=== PATIENT | female | born 1980 | race Hispanic/Latino ===

== ENCOUNTER 2018-03-24 07:33 | Day surgery (SDC) | payer BC ==
[2018-03-24 07:43] VITALS: BMI 24.1
[2018-03-24 08:02] LABS: BASO % 0.6 % (0.0-2.0); EOS # 0.2 K/uL (0.0-0.7); EOS % 3.5 % (0.0-4.0); LYMPH # 1.7 K/uL (1.0-4.3); LYMPH % 31.7 % (20.0-40.0); MEAN CELL VOLUME 89.7 fL (81.0-99.0); MEAN CORPUSCULAR HEMOGLOBIN 31.7 pg (27.0-31.0); MEAN CORPUSCULAR HGB CONC 35.3 g/dL (33.0-37.0); MONO # 0.3 K/uL (0.0-0.8); MONO % 6.2 % (0.0-10.0); RBC 3.79 Mil/uL (3.80-5.20); RED CELL DISTRIBUTION WIDTH 13.1 % (11.5-14.5); WHITE BLOOD COUNT 5.2 K/uL (4.8-10.8)
[2018-03-24 08:13] LABS: BLOOD UREA NITROGEN 15 mg/dL (7-17); CALCIUM 8.8 mg/dl (8.6-10.4); GFR AFRICAN-AMERICAN > 60; GFR NON-AFRICAN AMERICAN > 60
[2018-03-24 08:27] VITALS: RESP 18
[2018-03-24] MEDS ORDERED: Propofol 10 mg/ml Inj (20 ML) ONE (09:21)
--- NOTE | 2018-03-24 09:54 | PCM.SURG1 ---
Surgeon's Initial Post Op Note - Surgeon's Notes Surgeon: Lois Plascencia MD Development Architect: None Type of Anesthesia: General LMA Pre-Operative Diagnosis: Abnormal uterine bleeding Operative Findings: 10 week size uterus, biilatearl ostia visulzed, sumbucosla myoma along left lateral edge resected with myosure Post-Operative Diagnosis: same as above Operation Performed: Hysteroscopic myomectomy, Dilationa dn currettage Specimen/Specimens Removed: endocervical currettingd, endometrial currettings, submucsal myoma Estimated Blood Loss: EBL {In ML}: 5 Blood Products Given: N/A Drains Used: No Drains Post-Op Condition: Good Date of Surgery/Procedure: 03/24/18 Time of Surgery/Procedure: 09:35
[2018-03-24] MEDS ORDERED: HYDROmorphone 0.5 mg/0.5 ml ISec IVP PRN (10:02)
[2018-03-24 11:44] VITALS: BP 90/70; PULSE 80; TEMP 97.6; O2SAT 100
--- NOTE | 2018-03-24 19:30 | OP ---
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 TYPE OF ANESTHESIA: General LMA. PREOPERATIVE DIAGNOSIS: Abnormal uterine bleeding. OPERATIVE FINDINGS: A 10 weeks size uterus. Bilateral ostia visualized. Submucosal myoma along the left lateral edges resected with MyoSure. POSTOPERATIVE DIAGNOSIS: Abnormal uterine bleeding. OPERATIONS PERFORMED: Hysteroscopic myomectomy, dilatation and curettage. SPECIMEN REMOVED: Endocervical curettings, endometrial curettings, and submucosal myoma. ESTIMATED BLOOD LOSS: 5 mL. BLOOD PRODUCTS: None. COMPLICATIONS: None. DESCRIPTION OF PROCEDURE: Patient was taken to the operating where she was given general anesthesia. Once found to be adequate, she was placed on the operating table in the dorsal supine position with legs supported using stirrups. The patient was then prepped and draped in the usual sterile fashion. A time-out confirmed correct patient and correct procedure which was then performed. Bimanual examination was performed with the above-mentioned findings. Pa retractor was placed on the anterior and posterior fornix of the vagina. The cervix was adequately visualized. A single-tooth tenaculum was placed in the anterior lip of the cervix. Endocervical curettings were obtained with a Kevdkian curette and sent to Pathology on [facility]. Following this, the uterus was then sounded to 8 cm. Following this, cervix was sequentially dilated to allow for introduction of a 5 mm hysteroscope under direct visualization using normal saline as a distention media. Please refer to operative findings for notes for above. The submucosal myoma was noted and the MyoSure device was then inserted. The mass was then carefully resected. The MyoSure device then removed. Gentle curettage was done and sent to Pathology on [facility]. All instruments were removed with good hemostasis noted at the tenaculum puncture site. At the end of the procedure, all needle, sponge, and instrument counts were noted and correct x2. The patient tolerated the procedure well and was transferred to the recovery room in stable condition. Lois Plascencia MD [facility] # [id number]
== END 2018-03-24 12:12 | disposition home or self-care (01) ==
LOC: C.SDS 07:33
PROVIDERS: ATTEND Obstetrics & Gynecology
DX: N93.9 Abnormal uterine and vaginal bleeding, unspecified (principal); D25.9 Leiomyoma of uterus, unspecified
CPT/HCPCS: 36415; 58561; 80048; 84703; 85025; 88305; J1885; J2405; J2704; J3010